=== PATIENT | female | born 1975 | race Two or more races ===

== ENCOUNTER 2024-01-25 20:42 | Emergency (ER) | payer OTHER ==
[~2024-01-25] VITALS: Ht 160 cm; Wt 74.8 kg
[2024-01-25] MEDS ORDERED: KEPPRA100 MG/1 M (20:46)
[2024-01-25] MEDS ORDERED: CEFTRIAXONE SODIUM 1,000 MG VIAL IM STA (22:04)
[2024-01-25] MEDS ORDERED: METHYLPREDNISOLONE SOD SUCC 125 MG VIAL IM STA (22:04)
[2024-01-25] MEDS ORDERED: GUAIFENESIN 200 MG/10 ML BLIST.PACK PO STA (22:06)
== END 2024-01-25 22:46 | disposition home or self-care (01) ==
LOC: ER 20:43
DX: J37.0 Chronic laryngitis (principal); R05.9 Cough, unspecified; Z88.6 Allergy status to analgesic agent; Z88.0 Allergy status to penicillin; Z91.013 Allergy to seafood

== ENCOUNTER → 2024-08-20 | Emergency (ER) | payer OTHER ==
[~2024-08-20] VITALS: Ht 160 cm; Wt 74.8 kg
[~2024-08-20] MED LIST: KEPPRA100 MG/1 M
== END | disposition left against medical advice (07) ==
LOC: ER 20:41
DX: Z53.21 Procedure and treatment not carried out due to patient leaving prior to being seen by health care provider (principal)